=== PATIENT | female | born 1965 | race Caucasian/White ===

== ENCOUNTER 2016-07-13 12:32 | Emergency (ER) | payer OTHER ==
[~2016-07-13] VITALS: Ht 160 cm; Wt 65.3 kg
[~2016-07-13 12:32] MED LIST: MEDR400V IM; OXYB5TAB11 PO; PANT20TA2 PO; SERT25TA PO; TOLT1TAB PO
[2016-07-13] MEDS ORDERED: NAPR220C15 PO (12:46)
[2016-07-13] MEDS ORDERED: ACET-868 PO (12:46)
[2016-07-13] MEDS ORDERED: KETOROLAC TROMETHAMINE INJ 30 MG/ML VIAL ONE (12:58)
[2016-07-13] MEDS ORDERED: KETOROLAC TROMETHAMINE INJ 30 MG/ML VIAL IM ONE (13:00)
[2016-07-13 13:50] VITALS: BP 118/82
== END 2016-07-13 14:00 | disposition home or self-care (01) ==
LOC: ER 12:33
DX: J20.9 Acute bronchitis, unspecified (principal); R07.89 Other chest pain; K21.9 Gastro-esophageal reflux disease without esophagitis; F17.210 Nicotine dependence, cigarettes, uncomplicated; Z88.8 Allergy status to other drugs, medicaments and biological substances
CPT/HCPCS: 71020-TC; A4606; J1885; Z7610

== ENCOUNTER → 2017-02-01 | Emergency (ER) | payer OTHER ==
[~2017-02-01] VITALS: Ht 91.4 cm; Wt 72.6 kg
[~2017-02-01] MED LIST changes: +ACET-868 PO; +HYDROCODONE/APAP 10/325MG 1 EA TABLET ONE; +HYDROCODONE/APAP 10/325MG 1 EA TABLET PO ONE; +IBUPROFEN 600 MG TABLET PO ONE; +NAPR220C15 PO; -TOLT1TAB PO; +TOLT1TAB2 PO
[2017-02-01 12:21] VITALS: BP 120/83
--- NOTE | 2017-02-01 12:39 | NUR ---
PT REC'D TO ER C/O PAIN AND SWELLING LEFT HAND . SHE STATED FALLING AT THE P[OOL 2 DAYS AGO . ICE ELEVATION OF LEFT HAND AWAITING EVALUATION BY ER PROVIDER.
== END | disposition home or self-care (01) ==
LOC: ER 12:14
DX: S63.8X2A Sprain of other part of left wrist and hand, initial encounter (principal); K21.9 Gastro-esophageal reflux disease without esophagitis; N32.81 Overactive bladder; F17.200 Nicotine dependence, unspecified, uncomplicated; Z88.8 Allergy status to other drugs, medicaments and biological substances; Z90.49 Acquired absence of other specified parts of digestive tract; W19.XXXA Unspecified fall, initial encounter; Y93.9 Activity, unspecified; Y92.9 Unspecified place or not applicable; Y99.9 Unspecified external cause status
CPT/HCPCS: 73130-TC; A4606; Z7610

== ENCOUNTER 2017-06-02 13:10 | Emergency (ER) | payer OTHER ==
[~2017-06-02] VITALS: Ht 160 cm; Wt 68.0 kg
[~2017-06-02 13:10] MED LIST changes: -HYDROCODONE/APAP 10/325MG 1 EA TABLET ONE; -HYDROCODONE/APAP 10/325MG 1 EA TABLET PO ONE; -IBUPROFEN 600 MG TABLET PO ONE
[2017-06-02 13:15] VITALS: BP 127/87
== END 2017-06-02 14:58 | disposition home or self-care (01) ==
LOC: ER 13:11
DX: R07.89 Other chest pain (principal); B34.9 Viral infection, unspecified; K21.9 Gastro-esophageal reflux disease without esophagitis; N32.81 Overactive bladder; F17.200 Nicotine dependence, unspecified, uncomplicated; Z90.49 Acquired absence of other specified parts of digestive tract; Z88.8 Allergy status to other drugs, medicaments and biological substances
CPT/HCPCS: A4606; Z7610

== ENCOUNTER 2019-04-21 18:37 | Emergency (ER) | payer OTHER ==
[~2019-04-21] VITALS: Ht 162.6 cm; Wt 68.0 kg
[~2019-04-21 18:37] MED LIST changes: -OXYB5TAB11 PO; +OXYB5TAB16 PO
--- NOTE | 2019-04-21 19:22 | NUR ---
Note po in EDM - 04/21/19 at 2011 by EVICTOR PER PT LLQ ABDOMINAL PAIN R/T L FLANK AREA SINCE THIS MORNING. PT [email or web address]. BREATHING EVEN AND UNLABORED.
--- NOTE | 2019-04-21 19:22 | NUR ---
PT C/O LLQ ABDOMINAL PAIN R/T L FLANK AREA SINCE THIS MORNING. PER PATIENT "THE PAIN IS 5/10 AND PROGRESSES OVER THE DAY." PT [email or web address]. ABLE TO AMBULATE. DENIES N/V.
--- NOTE | 2019-04-21 19:22 | NUR ---
PT LEFT HOME IN STABLE CONDITION. -SOB VSS AOX4.
[2019-04-21] MEDS ORDERED: MORPHINE SULFATE INJ 4 MG/ML DISP.SYRIN ONE (19:27)
[2019-04-21 19:38] LABS: APPEARANCE,URINE Clear (CLEAR); BILIRUBIN,URINE Negative (NEGATIVE); BLOOD, URINE Trace-intact Ery/uL (NEGATIVE); COLOR,URINE Yellow (YELLOW); KETONES,URINE Negative (NEGATIVE); LEUKOCYTE ESTERASE ,URINE Negative (NEGATIVE); NITRITE, URINE Negative (NEGATIVE); PH,URINE 5.5 (5.0-8.0); PROTEIN,URINE Negative (NEGATIVE); UGLUCOSE Negative (NEGATIVE); UROBILINOGEN,URINE 0.2 EU/dL (0.2)
[2019-04-21] MEDS ORDERED: IBUPROFEN 600 MG TABLET PO ONE ×2 (19:46→20:00)
[2019-04-21 20:08] LABS: BASOPHILS # (AUTO) 0.1 /CMM (0.0-0.2); BASOPHILS % (AUTO) 0.5 % (0.0-2.0); EOSINOPHILS % (AUTO) 2.1 % (0.0-6.0); HEMATOCRIT 39 % (33-45); HEMOGLOBIN 13.2 g/dL (11.5-14.8); LYMPHOCYTES % (AUTO) 22.8 % (20.0-44.0); MEAN CORPUSCULAR HGB CONC 33 g/dl (31.0-36.0); MEAN CORPUSCULAR VOLUME 95 fL (82-100); MONOCYTES # (AUTO) 0.8 /CMM (0.1-1.30); NEUTROPHILS # (AUTO) 9.1 /CMM (1.8-8.9); NEUTROPHILS % (AUTO) 68.6 % (43.0-81.0); PLATELET COUNT (AUTO) 326 /CMM (150-450); RED BLOOD CELL COUNT(AUTO) 4.16 MIL/uL (4.0-5.2); WHITE BLOOD COUNT (AUTO) 13.2 K/uL (4.3-11.0)
[2019-04-21 20:12] LABS: CALCIUM, SERUM 9.1 mg/dL (8.5-10.1); CREATININE 0.9 mg/dL (0.6-1.3); POTASSIUM 3.8 mmol/L (3.5-5.1)
[2019-04-21 20:14] LABS: BACTERIA,URINE Moderate /HPF (None Seen)
[2019-04-21 20:15] LABS: RBC,URINE 0-2 /HPF (0-2); SQUAMOUS EPITHELIAL CELL,UR Few /HPF (None Seen); WBC,URINE 0-2 /HPF (0-3)
[2019-05-04 07:26] VITALS: BP 121/74
== END 2019-04-21 21:52 | disposition home or self-care (01) ==
LOC: ER 18:39
DX: R10.32 Left lower quadrant pain (principal); K21.9 Gastro-esophageal reflux disease without esophagitis; F17.200 Nicotine dependence, unspecified, uncomplicated; Z90.49 Acquired absence of other specified parts of digestive tract; Z88.1 Allergy status to other antibiotic agents; Z88.8 Allergy status to other drugs, medicaments and biological substances; Z60.2 Problems related to living alone; Z79.899 Other long term (current) drug therapy
CPT/HCPCS: 36415; 76770-TC; 76856-TC; 80048-TC; 81000-TC; 85025-TC; 87086-TC; J2270

== ENCOUNTER 2019-07-02 11:52 | Emergency (ER) | payer OTHER ==
[~2019-07-02] VITALS: Ht 160 cm; Wt 68.9 kg
[2019-07-02 11:57] VITALS: BP 130/73
[2019-07-02] MEDS ORDERED: DEXAMETHASONE SOD PHOSPHATE 10 MG/ML VIAL ONE (12:20)
[2019-07-02] MEDS ORDERED: DEXAMETHASONE SOD PHOSPHATE 10 MG/ML VIAL IM ONE (12:30)
== END 2019-07-02 13:12 | disposition home or self-care (01) ==
LOC: ER 11:52
DX: J06.9 Acute upper respiratory infection, unspecified (principal); K21.9 Gastro-esophageal reflux disease without esophagitis; F17.200 Nicotine dependence, unspecified, uncomplicated; Z90.49 Acquired absence of other specified parts of digestive tract; Z88.1 Allergy status to other antibiotic agents; Z88.5 Allergy status to narcotic agent; Z60.2 Problems related to living alone; Z79.899 Other long term (current) drug therapy
CPT/HCPCS: 96372; 99283; J1100